=== PATIENT | male | born 1980 | race African-American/Black ===

== ENCOUNTER 2019-08-24 19:14 | Emergency (ER) | payer SELFPAY ==
[2019-08-24] MEDS ORDERED: VANCOMYCIN HCL INJ 1000 MG VIAL IV ONE (20:22)
[2019-08-24] MEDS ORDERED: NORMAL SALINE 1000 ML 1,000 ML IV ONE (20:22)
[2019-08-24] MEDS ORDERED: MORPHINE SULFATE 10 MG/ML INJ IV ONE (20:22)
[2019-08-24] MEDS ORDERED: PIPERACILLIN/TAZOBACTAM 3.375 GM VIAL IV ONE (20:22)
--- NOTE | 2019-08-24 20:27 | ER Document Report ---
ED General - General Chief Complaint: Wound Infection Stated Complaint: OPEN WOUND BILATERAL FEET Time Seen by Provider: 08/24/19 20:12 TRAVEL OUTSIDE OF THE [place] IN LAST 30 DAYS: No - HPI Notes: Patient is a 38-year-old male who presents to the emergency department for evaluation of bilateral foot pain. He is a very poor historian. I asked him how long he has had these ulcerations on his feet. He states he is unsure, may be 2 days. He denies any fevers or chills. No nausea or vomiting. He states he been having significant pain, which is why he came in here. He states he Narinder has an appointment with a surgeon on Saturday. He has diabetic neuropathy, but still states his pain is a 5 out of 5. - Related Data Allergies/Adverse Reactions: No Known Allergies Allergy (Unverified 08/05/16 21:37) Home Medications: metformin. insulin. gabapentin. oxycodone Past Medical History - General Information source: Patient - Social History Smoking Status: Current Every Day Smoker Frequency of alcohol use: daily Drug Abuse: Marijuana Family History: Reviewed & Not Pertinent Patient has suicidal ideation: No Patient has homicidal ideation: No Endocrine Medical History: Reports: Hx Diabetes Mellitus Type 2 - With neuropathy - Immunizations Hx Diphtheria, Pertussis, Tetanus Vaccination: Yes Review of Systems - Review of Systems Constitutional: No symptoms reported EENT: No symptoms reported Cardiovascular: No symptoms reported Respiratory: No symptoms reported Gastrointestinal: No symptoms reported Genitourinary: No symptoms reported Musculoskeletal: See HPI Skin: See HPI Neurological/Psychological: No symptoms reported Physical Exam - Notes Notes: This is an extremely cachectic 38-year-old male who appears his stated age. He smells strongly of marijuana and alcohol. Head is normocephalic and atraumatic, pupils are equal round, reactive to light. Mild scleral icterus noted. Oral mucosa is moist. Heart is regular rate and rhythm, lungs are clear station bilaterally. Abdomen is scaphoid, nontender, normoactive bowel sounds. Patient has extremely thickened and scaly skin to bilateral lower extremities. Examination of the right foot yields a 2 cm ulceration over the first metatarsophalangeal joint, on the plantar surface. Patient has a 6 cm x 3 cm ulceration over the fifth metatarsal on the left foot, from the MTP down towards the tarsal bones. There is purulent and foul-smelling drainage coming from the wound. There is thickened and dark skin, concerning for gangrene, surrounding the wound, tracking over the dorsum of the foot. Pulses are diminished but palpable. Sensation is diminished to light touch bilaterally. Course - Re-evaluation Re-evalutation: 08/24/19 20:26 Patient presents to the emergency department for evaluation. This patient has significant infection in both feet, left greater than right. I am concerned about the possibility of osteomyelitis, and this area definitely needs debridement. At this point I am concerned that he would require amputation. The patient states that under no circumstances will he stay in the hospital today. I talked to him at length about the possible complications he was facing, including but not limited to worsened infection, more proximal amputation, and . He thoroughly voiced understanding to this, states he still does not want to stay. He asks repeatedly for something for pain. He understands the gravity of his illness, and states he has not plan to follow-up with the surgeon on Saturday in place already. Patient will be medicated with Zosyn, vancomycin, morphine. He will be given IV fluids. X-rays obtained. La boratory investigations pending at this time, we will continue to monitor. 08/24/19 23:22 As expected, the patient does not fact have osteomyelitis of the fifth metatarsal. I explained this to the patient. I explained to him that he needs IV antibiotics, admission to the hospital, debridement. He is at risk of losing more tissue, a more proximal amputation, sepsis, . He voiced understanding to this and still refuses to stay in the hospital. He states he has an appointment on Saturday and will follow-up. He voiced understanding to all possible comp occasions and still wants to leave AGAINST MEDICAL ADVICE. He understands he can change his mind at any point return to the ED for further care and evaluation. We will send him home with a prescription for Augmentin. - Laboratory Result Diagrams: 08/24/19 20:40 08/24/19 20:40 Laboratory results interpreted by me: 08/24/19 08/24/19 20:40 20:40 RBC 3.92 L Hgb 13.1 L MCV 98 H ESR 43 H Sodium 134.7 L Chloride 97 L BUN 4 L Creatinine 0.50 L Glucose 483 H* Alkaline Phosphatase 175 H - Diagnostic Test Radiology reviewed: Image reviewed, Reports reviewed Radiology results interpreted by me: 08/24/19 23:21 Foot X-Ray 08/24/19 20:20 IMPRESSION: Osteomyelitis involving the head of the left fifth metatarsal. copyright 2011 [employer]- All Rights Reserved Discharge - Discharge Clinical Impression: Osteomyelitis, Diabetic foot ulcer Condition: Stable Disposition: AGAINST MEDICAL ADVICE Instructions: Antibiotic Ointment Protection ([facility]), Osteomyelitis ([facility]) Additional Instructions: You have elected to leave AGAINST MEDICAL ADVICE. The significant risk of worsening infection, need for larger amputation, sepsis, loss of lifestyle, , have all been explained in great detail. You have decided that you would still like to leave the hospital. Please understand that you can change your mind any time regarding admission, and return back to the ED for further evaluation. Otherwise, please take the antibiotic as prescribed. Follow-up with the surgeon as scheduled on Saturday.
[2019-08-24 20:55] LABS: ABSOLUTE BASOPHILS # (AUTO) 0.1 10^3/uL (0.0-0.2); ABSOLUTE EOSINOPHILS # (AUTO) 0.1 10^3/uL (0.0-0.6); ABSOLUTE LYMPHOCYTES (AUTO) 1.9 10^3/uL (0.5-4.7); ABSOLUTE MONOCYTES (AUTO) 0.6 10^3/uL (0.1-1.4); BASOPHILS % (AUTO) 1.2 % (0-2); EOSINOPHILS % (AUTO) 0.9 % (0-6); HEMATOCRIT 38.6 % (37.9-51.0); HEMOGLOBIN 13.1 g/dL (13.5-17.0); LYMPHOCYTES % (AUTO) 19.7 % (13-45); MEAN CORPUSCULAR HEMOGLOBIN 33.4 pg (27.0-33.4); MEAN CORPUSCULAR HGB CONC 33.9 g/dL (32.0-36.0); MEAN CORPUSCULAR VOLUME 98 fl (80-97); MONOCYTES % (AUTO) 6.6 % (3-13); PLATELET COUNT 357 10^3/uL (150-450); RED BLOOD COUNT 3.92 10^6/uL (4.35-5.55); RED CELL DISTRIBUTION WIDTH 13.8 % (11.5-14.0); SEGMENTED NEUTROPHILS % (AUTO) 71.6 % (42-78); TOTAL CELLS COUNTED % (AUTO) 100 %; WHITE BLOOD COUNT 9.7 10^3/uL (4.0-10.5)
[2019-08-24 21:21] LABS: ALBUMIN 3.5 g/dL (3.5-5.0); ALKALINE PHOSPHATASE 175 U/L (38-126); ANION GAP 9 (5-19); ASPARTATE AMINO TRANSFERASE 31 U/L (17-59); BILIRUBIN,DIRECT 0.2 mg/dL (0.0-0.4); BILIRUBIN,TOTAL 0.4 mg/dL (0.2-1.3); BLOOD UREA NITROGEN 4 mg/dL (7-20); CALCIUM 9.3 mg/dL (8.4-10.2); CARBON DIOXIDE 29 mmol/L (22-30); CHLORIDE 97 mmol/L (98-107); TOTAL PROTEIN 7.5 g/dL (6.3-8.2)
[2019-08-24 21:22] LABS: C-REACTIVE PROTEIN < 5.0 mg/L (<10.0)
[2019-08-24 21:25] LABS: GLUCOSE 483 mg/dL (75-110)
[2019-08-24 21:31] LABS: ERYTHROCYTE SEDIMENTATION RATE 43 mm/hr (0-15)
--- NOTE | 2019-08-24 21:40 | RADIOLOGY REPORT (SQ) ---
EXAM DESCRIPTION: XR FOOT 3 OR MORE VIEWS BILATERAL COMPLETED DATE/TME: 08/24/2019 20:20 CLINICAL HISTORY: 38 years, Male, ulcerations, eval for osteo COMPARISON: None. NUMBER OF VIEWS: TECHNIQUE: LIMITATIONS: None. FINDINGS: There are soft tissue ulcerations overlying the distal fifth metatarsals bilaterally, left side more apparent than right. There is bone destruction involving the lateral aspect of the head of the left fifth metatarsal, compatible with osteomyelitis. There is no definite radiographic evidence of osteomyelitis involving the right fifth metatarsal. IMPRESSION: Osteomyelitis involving the head of the left fifth metatarsal. copyright 2010 [employer]- All Rights Reserved
[2019-08-24] MEDS ORDERED: INSULIN REG, HUMAN 100 UNIT/ML 3 ML VIAL (PYX) IV ONE (22:53)
== END 2019-08-25 00:44 | disposition left against medical advice (07) ==
LOC: ER 19:14
DX: E11.69 Type 2 diabetes mellitus with other specified complication (principal); M86.9 Osteomyelitis, unspecified; E11.621 Type 2 diabetes mellitus with foot ulcer; L97.529 Non-pressure chronic ulcer of other part of left foot with unspecified severity; L97.519 Non-pressure chronic ulcer of other part of right foot with unspecified severity; E11.40 Type 2 diabetes mellitus with diabetic neuropathy, unspecified; Z79.84 Long term (current) use of oral hypoglycemic drugs; Z79.4 Long term (current) use of insulin; Z79.899 Other long term (current) drug therapy; Z79.891 Long term (current) use of opiate analgesic; M79.671 Pain in right foot; M79.672 Pain in left foot; F17.200 Nicotine dependence, unspecified, uncomplicated; F12.10 Cannabis abuse, uncomplicated; R64 Cachexia; Z53.20 Procedure and treatment not carried out because of patient's decision for unspecified reasons
CPT/HCPCS: 36415; 87040; 85025; 85652; 86140; 80053; 73630; J2270; J7030; J3370; J2543

== ENCOUNTER 2019-10-29 04:03 | Inpatient (IN) | payer MEDICAID ==
[2019-10-29 04:36] LABS: ABSOLUTE BASOPHILS # (AUTO) 0.1 10^3/uL (0.0-0.2); ABSOLUTE EOSINOPHILS # (AUTO) 0.1 10^3/uL (0.0-0.6); ABSOLUTE LYMPHOCYTES (AUTO) 1.8 10^3/uL (0.5-4.7); ABSOLUTE MONOCYTES (AUTO) 0.9 10^3/uL (0.1-1.4); ABSOLUTE NEUT (AUTO) 14.6 10^3/uL (1.7-8.2); BASOPHILS % (AUTO) 0.6 % (0-2); EOSINOPHILS % (AUTO) 0.7 % (0-6); HEMATOCRIT 31.8 % (37.9-51.0); HEMOGLOBIN 10.4 g/dL (13.5-17.0); LYMPHOCYTES % (AUTO) 10.4 % (13-45); MEAN CORPUSCULAR HEMOGLOBIN 31.9 pg (27.0-33.4); MEAN CORPUSCULAR HGB CONC 32.7 g/dL (32.0-36.0); MEAN CORPUSCULAR VOLUME 98 fl (80-97); PLATELET COUNT 716 10^3/uL (150-450); RED BLOOD COUNT 3.26 10^6/uL (4.35-5.55); RED CELL DISTRIBUTION WIDTH 14.4 % (11.5-14.0); SEGMENTED NEUTROPHILS % (AUTO) 83.3 % (42-78); TOTAL CELLS COUNTED % (AUTO) 100 %; WHITE BLOOD COUNT 17.5 10^3/uL (4.0-10.5)
[2019-10-29 04:41] LABS: VENOUS BLOOD BASE EXCESS -1.2 mmol/L; VENOUS BLOOD HCO3 25.6 mmol/L (20-32); VENOUS BLOOD PCO2 51.2 mmHg (35-63); VENOUS BLOOD PH 7.32 (7.30-7.42)
[2019-10-29] MEDS ORDERED: RINGERS SOLUTION,LACTATED 1,000 ML IV ONE ×2 (04:48→05:12)
[2019-10-29] MEDS ORDERED: ONDANSETRON HCL INJ/PF 4 MG/2 ML SDV IV ONE (04:48)
[2019-10-29 04:50] LABS: ALBUMIN 3.5 g/dL (3.5-5.0); ALKALINE PHOSPHATASE 199 U/L (38-126); ANION GAP 11 (5-19); ASPARTATE AMINO TRANSFERASE 65 U/L (17-59); BILIRUBIN,DIRECT 0.3 mg/dL (0.0-0.4); BILIRUBIN,TOTAL 0.5 mg/dL (0.2-1.3); BLOOD UREA NITROGEN 23 mg/dL (7-20); CARBON DIOXIDE 24 mmol/L (22-30); CHLORIDE 97 mmol/L (98-107); POTASSIUM 4.6 mmol/L (3.6-5.0); TOTAL PROTEIN 8.3 g/dL (6.3-8.2)
--- NOTE | 2019-10-29 04:50 | ER Document Report ---
ED General - General Chief Complaint: Nausea/Vomiting/Diarrhea Stated Complaint: ABDOMINAL AND LEG PAIN Time Seen by Provider: 10/29/19 04:41 Notes: Patient is a 38-year-old male that comes emergency department for chief complaint of nausea, vomiting, abdominal pain, weakness, aching all over for the past 2 days. He also reports some loose stools. He denies fevers, chest pain, shortness of breath. 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 He denies any medical history other than type 2 diabetes, denies any recreational drugs, reports infrequent alcohol. He has not taken insulin today because he was unable to eat. He states his grandmother called EMS. He received 1 L normal saline in route for hypotension but is still hypotensive on arrival with borderline tachycardia. TRAVEL OUTSIDE OF THE [place] IN LAST 30 DAYS: No - Related Data Allergies/Adverse Reactions: No Known Allergies Allergy (Unverified 08/05/16 21:37) Home Medications: Med bag at bedside Past Medical History - General Information source: Patient - Social History Smoking Status: Never Smoker Frequency of alcohol use: Social Drug Abuse: None Lives with: Family Family History: Reviewed & Not Pertinent Patient has suicidal ideation: No Patient has homicidal ideation: No Endocrine Medical History: Reports: Hx Diabetes Mellitus Type 2 - Insulin- dependent, with neuropathy Past Surgical History: Reports: Hx Orthopedic Surgery - Right BKA - Immunizations Hx Diphtheria, Pertussis, Tetanus Vaccination: Yes Review of Systems - Review of Systems Constitutional: See HPI EENT: No symptoms reported Cardiovascular: No symptoms reported Respiratory: No symptoms reported Gastrointestinal: See HPI Genitourinary: No symptoms reported Male Genitourinary: No symptoms reported Musculoskeletal: No symptoms reported Skin: No symptoms reported Hematologic/Lymphatic: No symptoms reported Neurological/Psychological: No symptoms reported Physical Exam - Vital signs Vitals: Resp Pulse Ox 14 96 10/29/19 04:06 10/29/19 04:06 - Notes Notes: GENERAL: Awake, responsive but emaciated, extremely ill-appearing HEAD: Normocephalic, atraumatic. EYES: Pupils equal, round, and reactive to light. ENT: Oral mucosa very dry, tongue midline. Oropharynx unremarkable. Airway patent. NECK: Full range of motion. Supple. Trachea midline. LUNGS: Clear to auscultation bilaterally, no wheezes, rales, or rhonchi. No respiratory distress. HEART: Tachycardia, normal rhythm, no murmur ABDOMEN: No surgical scars. Generalized tenderness in upper and lower abdomen without obvious distention or guarding. Bowel sounds quiet. EXTREMITIES: Right BKA with Steri-Strips but no melanie over the stump, no drainage, tenderness, erythema, or noted tenderness. Old right dorsal hand wound which has healed open without current bleeding or drainage. Unremarkable otherwise. BACK: no cervical, thoracic, lumbar midline tenderness. No saddle anesthesia, normal distal neurovascular exam. Moves all extremities in full range of motion. NEUROLOGICAL: Alert and oriented x3. Normal speech. Cranial nerves II through XII grossly intact. PSYCH: Normal affect, normal mood. SKIN: Extremely dry skin Course - Re-evaluation Re-evalutation: Patient is very ill-appearing, hypotensive, tachycardic, extremely emaciated. However the right BKA does not appear infected, is not draining, erythematous, or tender. Patient discovered to be on Flagyl and Bactrim with review of his medications at bedside, he is also on pain medication with oxycodone. Patient denies any abdominal surgeries, he has generalized abdominal tenderness, he is not hypoxic, he is not febrile. Patient denies vomiting blood. Patient unsure of his stool appearance. Patient had a bowel movement, this was noted to be very dark, possibly bloody, this was heme positive. Patient's hemoglobin is also dropped down into the tens from previous 12's although patient did have recent surgery. Starting on Protonix, Protonix drip. Patient has not vomited since he has been here. He is more comfortable on reevaluation, his blood pressure is normal now, his tachycardia is resolved after IV fluids and medications. On reevaluation patient complaining of more abdominal pain. He does have leukocytosis, he still has generalized abdominal tenderness, chemistry nonspecific. Patient has been given insulin and IV fluids with hyperglycemia but he is not acidotic. Because of his overall ill appearance, abdominal pain, leukocytosis, dark stool CT of the abdomen pelvis was performed, patient does not feel he can tolerate oral contrast, this was performed without unfortunately. CT report indicating dilated stomach and small bowel suggestive of partial obstruction, groundglass opacity in the right lower lung. Patient has no cough, shortness of breath, hypoxia. No fever. 10/29/19 I have discussed patient with Dr. Kilgore. Discussed with surgery Dr. Goetz, he states he will consult on the patient, recommends hospitalist admission, recommends oral contrast CAT scan. I discussed with patient again, he does feel better and he appears much improved, he states he does feel like he would be able to drink oral contrast at this point. 10/29/19 Discussed with Alaina Vincent NP, patient accepted to the medical floor full admission. Patient states understanding and agreement with plan - Vital Signs Vital signs: Temp Pulse Resp BP Pulse Ox 97.7 F 15 116/84 98 10/29/19 04:21 10/29/19 06:00 10/29/19 07:00 10/29/19 06:01 - Laboratory Result Diagrams: 10/29/19 04:15 10/29/19 04:15 Laboratory results interpreted by me: 10/29/19 10/29/19 10/29/19 04:11 04:15 04:15 WBC 17.5 H RBC 3.26 L Hgb 10.4 L Hct 31.8 L MCV 98 H RDW 14.4 H Plt Count 716 H Lymph % (Auto) 10.4 L Absolute Neuts (auto) 14.6 H Seg Neutrophils % 83.3 H Sodium 131.7 L Chloride 97 L BUN 23 H Glucose 465 H* POC Glucose 451 H* AST 65 H Alkaline Phosphatase 199 H Total Protein 8.3 H 10/29/19 07:08 WBC RBC Hgb Hct MCV RDW Plt Count Lymph % (Auto) Absolute Neuts (auto) Seg Neutrophils % Sodium Chloride BUN Glucose POC Glucose 417 H* AST Alkaline Phosphatase Total Protein Discharge - Discharge Clinical Impression: Hyperglycemia Vomiting Qualifiers: Vomiting type: unspecified Vomiting Intractability: non-intractable Nausea presence: with nausea Qualified Code(s): R11.2 - Nausea with vomiting, unspecified GI bleed Qualifiers: GI bleed type/associated pathology: unspecified gastrointestinal hemorrhage type Qualified Code(s): K92.2 - Gastrointestinal hemorrhage, unspecified Condition: Stable Disposition: ADMITTED INPATIENT Admitting Provider: Rob (Hospitalist) Unit Admitted: Medical Floor
[2019-10-29 05:02] LABS: GLUCOSE 465 mg/dL (75-110)
[2019-10-29] MEDS ORDERED: INSULIN REG, HUMAN 100 UNIT/ML 3 ML VIAL (PYX) SUBCUT ONE (05:11)
[2019-10-29] MEDS ORDERED: FENTANYL CITRATE INJ/PF 100 MCG/2 ML AMPUL IV ONE ×2 (05:12→07:11)
[2019-10-29] MEDS ORDERED: PANTOPRAZOLE SODIUM 40 MG VIAL IV ONE (05:24)
[2019-10-29 05:40] LABS: INTERNATIONAL RATION (INR) 1.05; PROTHROMBIN TIME 13.7 SEC (11.4-15.4)
[2019-10-29 05:41] LABS: PARTIAL THROMBOPLASTIN TIME 32.3 SEC (23.5-35.8)
[2019-10-29] MEDS ORDERED: PANTOPRAZOLE SODIUM 40 MG VIAL IV PRN (06:01)
--- NOTE | 2019-10-29 06:22 | RADIOLOGY REPORT (SQ) ---
EXAM DESCRIPTION: XR CHEST 1 VIEW COMPLETED DATE/TME: 10/29/2019 05:11 CLINICAL HISTORY: 38 years, Male, weakness, hypotension COMPARISON: None. NUMBER OF VIEWS: 1 TECHNIQUE: Portable chest LIMITATIONS: None. FINDINGS: The heart size is normal. Lungs are clear. No pneumothorax IMPRESSION: Negative chest copyright 2011 [employer]- All Rights Reserved
--- NOTE | 2019-10-29 07:26 | RADIOLOGY REPORT (SQ) ---
EXAM: CT abdomen and pelvis with IV contrast CLINICAL DATA: 38-year-old male with abdominal pain, vomiting and leukocytosis TECHNICAL DATA: Axial CT imaging of the abdomen and pelvis was performed following the administration of intravenous contrast.. Sagittal and coronal reconstructed images were then performed. The CT study is performed according to ALARA (as low as reasonably achievable) or ALARA/IMAGE GENTLY, with automatic adjustment of mA and/or kV according to patient size. Performed on: 10/29/2019 at 6:18 AM. Comparison: None FINDINGS: Lung bases: There are faint groundglass opacities in the right lower lobe which may be related to a localized inflammatory process. The lung bases are otherwise clear. There are no pleural effusions. Liver:The liver is normal in size and configuration. No focal hepatic abnormalities are identified. Liver attenuation is within normal limits. Spleen:The spleen is normal is size, configuration and attenuation. Gallbladder and bile duct: The gallbladder is difficult to delineate from adjacent bowel loops. There is no biliary ductal dilatation. Pancreas: The pancreas is grossly normal in size and configuration. Adrenal Glands:The adrenal glands are normal in size and configuration. Kidneys:The kidneys are normal in size and configuration. There is no evidence of hydronephrosis. There is no evidence of nephrolithiasis. No definite solid or cystic renal mass lesions are identified. Stomach: The stomach is moderately distended with fluid. There is no definite hiatal hernia. Bowel:The bowel gas pattern is non specific and non obstructive. There is a paucity of intra-abdominal fat resulting in slight degradation of image quality. The duodenum is moderately distended with fluid. Appendix: The appendix is normal. Free air:There is no evidence of free air. Free fluid: No definite free fluid is appreciated on this examination. Vasculature: The aorta is normal in caliber and contour. The inferior vena cava is grossly unremarkable. Lymphadenopathy: No pathologic lymphadenopathy is identified. Bladder: The bladder is well distended and smooth in contour. Reproductive: The prostate gland is grossly within normal limits. Bones: No acute osseous abnormalities are identified. Soft tissues: No focal soft tissue abnormalities are identified. There is poor differentiation of the subcutaneous fat planes which may be due to underlying edema. IMPRESSION: 1. Faint groundglass opacities in the right lower lobe which may be related to a localized inflammatory process. 2. The stomach and duodenum are moderately distended with fluid. A proximal bowel obstruction is not excluded. 3. Poor differentiation of the subcutaneous fat planes which may be due to underlying edema. 4. Paucity of intra-abdominal fat resulting in slight degradation of image quality. 5. The gallbladder is difficult to delineate from adjacent bowel loops.
[2019-10-29 08:16] LABS: APPEARANCE,URINE SLIGHTLY-CLOUDY; BILIRUBIN,URINE NEGATIVE (NEGATIVE); COLOR,URINE YELLOW; GLUCOSE, URINE >=500 mg/dL (NEGATIVE); KETONES,URINE NEGATIVE (NEGATIVE); LEUKOCYTE ESTERASE,URINE TRACE (NEGATIVE); NITRITE,URINE NEGATIVE (NEGATIVE); PROTEIN,URINE 30 mg/dL (NEGATIVE); URINE SPECIFIC GRAVITY 1.054; UROBILINOGEN,URINE NEGATIVE mg/dL (<2.0)
[2019-10-29] MEDS ORDERED: ONDANSETRON HCL INJ/PF 4 MG/2 ML SDV IV PRN (08:40)
[2019-10-29] MEDS ORDERED: ACETAMINOPHEN 325 MG TABLET PO PRN (08:40)
[2019-10-29] MEDS ORDERED: MAG HYDROX/AL HYDROX/SIMETH SUSP 30 ML UDCUP PO PRN (08:40)
[2019-10-29] MEDS ORDERED: NORMAL SALINE 1000 ML 1,000 ML IV PRN (08:40)
[2019-10-29] MEDS ORDERED: IPRATROPIUM/ALBUTEROL 0.5-2.5 MG/3 ML AMPUL NEB PRN (08:40)
[2019-10-29] MEDS ORDERED: DEXTROSE 50%-WATER 25 GM/50 ML DISP.SYRIN IV PRN ×2 (08:47)
[2019-10-29] MEDS ORDERED: DEXTROSE 40% GEL 15 GM TUBE PO PRN ×2 (08:47)
[2019-10-29] MEDS ORDERED: GLUCAGON,HUMAN RECOMB 1 MG INJ SUBCUT PRN (08:47)
[2019-10-29] MEDS ORDERED: NORMAL SALINE 100 ML with PANTOPRAZOLE SODIUM 80 MG IV PRN ×2 (08:49)
--- NOTE | 2019-10-29 09:27 | EKG REPORT ---
SEVERITY:- OTHERWISE NORMAL ECG - SINUS RHYTHM BORDERLINE RIGHT AXIS DEVIATION ST ELEV, PROBABLE NORMAL EARLY REPOL PATTERN : Confirmed by: Cash Hughes 29-Oct-2019 09:26:57
[2019-10-29] MEDS: MINERAL OIL/PETROLATUM,WHITE CREAM 114 GM TP SCH ×4 (09:28→21:38)
[2019-10-29] MEDS: DOCUSATE SODIUM 100 MG CAPSULE PO SCH (09:28)
[2019-10-29] MEDS: INSULIN GLARGINE,HUM.REC.ANLOG 1,000 UNIT/10 ML VIAL SUBCUT SCH ×2 (09:31→21:35)
[2019-10-29 10:17] LABS: C DIFFICILE GDH NEGATIVE (NEGATIVE)
--- NOTE | 2019-10-29 10:58 | RADIOLOGY REPORT (SQ) ---
EXAM DESCRIPTION: CT ABD/PELVIS ORAL ONLY COMPLETED DATE/TIME: 10/29/2019 10:38 am REASON FOR STUDY: eval abnormal bowel on inital CT COMPARISON: Earlier the same day. TECHNIQUE: CT scan of the abdomen and pelvis performed with oral contrast and no intravenous contras t. Images reviewed with lung, soft tissue, and bone windows. Reconstructed coronal and sagittal MPR i mages reviewed. All images stored on PACS. All CT scanners at this facility use dose modulation, iterative reconstruction, and/or weight based d osing when appropriate to reduce radiation dose to as low as reasonably achievable (ALARA). [facility]: Dose Right [facility]: CareDose [facility]: Dose Right [facility]: Teradose 4D [facility]: [place] Illumination RADIATION DOSE: CT Rad equipment meets quality standard of care and radiation dose reduction techniq ues were employed. CTDIvol: 5.2 mGy. DLP: 278 mGy-cm. mGy. LIMITATIONS: None. FINDINGS: There is oral contrast in the stomach, small and large bowel. Mildly dilated loops of sma ll bowel in the left upper quadrant. No clear transition however the more distal small bowel is norm al in caliber. No other additional relevant information compared to the prior. IMPRESSION: Ileus or partial small bowel obstruction left upper quadrant. No high-grade obstruction . TECHNICAL DOCUMENTATION: JOB ID: [id number] Quality ID # [id number]: Final reports with documentation of one or more dose reduction techniques (e.g., Au tomated exposure control, adjustment of the mA and/or kV according to patient size, use of iterative reconstruction technique) 2010 [employer]- All Rights Reserved Reading location - IP/workstation name: [email or web address]
[2019-10-29] MEDS: TRAMADOL HCL 50 MG TABLET PO PRN ×2 (12:13→21:37)
[2019-10-29] MEDS: INSULIN LISPRO 100 UNIT/ML 3 ML VIAL SUBCUT SCH ×3 (12:14→21:35)
--- NOTE | 2019-10-29 13:29 | PDOC H&P ---
History of Present Illness Admission Date/PCP: 10/29/19 07:57 Patient complains of: Abdominal pain History of Present Illness: MATTEO JOSE is a 38 year old male with a past medical history of uncontrolled diabetes mellitus, osteomyelitis with recent right BKA, neuropathy who presented to the emergency department today with a complaint of generalized abdominal discomfort with nausea x2 days. He reports one episode of emesis yesterday. Evaluation in the emergency department revealed leukocytosis (D 17.5), anemia with a hemoglobin of coags, blood gas, and chemistry revealing mild hyponatremia slightly elevated AST and alk phosphatase, and hyperglycemia. CT of the abdomen with contrast demonstrated ileus versus partial small bowel obstruction to the left upper quadrant. Surgery has been consulted by the emergency department provider. Refer to the hospitalist service for admission and management of the above- stated complaints and findings. Past Medical History Cardiac Medical History: Reports: None Pulmonary Medical History: Reports: None EENT Medical History: Reports: None Endocrine Medical History: Reports: Diabetes Mellitus Type 2 - Insulin- dependent, with neuropathy Denies: Hypothyroidism, Obesity Renal/ Medical History: Reports: None Malignancy Medical History: Reports: None GI Medical History: Reports: None Musculoskeltal Medical History: Reports: None Psychiatric Medical History: Reports: Tobacco Dependency Hematology: Reports: None Infectious Medical History: Reports: None Past Surgical History Past Surgical History: Reports: Orthopedic Surgery - Right BKA Social History Information Source: Patient Lives with: Family Smoking Status: Never Smoker Electronic Cigarette use?: No Frequency of Alcohol Use: Occasional Hx Recreational Drug Use: No Hx Prescription Drug Abuse: No - Advance Directive Resuscitation Status: Full Code Family History Family History: Reviewed & Not Pertinent Parental Family History Reviewed: Yes Children Family History Reviewed: Yes Sibling(s) Family History Reviewed.: Yes Medication/Allergy Home Medications: B Infantis/B Ani/B Gus/B Bifid [Probiotic 4X Caplet] 1 each PO DAILY 10/29/19 Gabapentin [Neurontin 300 mg Capsule] 600 mg PO Q8 10/29/19 Insulin Aspart [Novolog Flexpen] 5 unit SQ AC 10/29/19 Insulin Detemir [Levemir Insulin 100 units/mL Insulin Pen] 40 units SQ QHS 10/29/19 Metformin HCl [Metformin HCl ER] 500 mg PO BID 10/29/19 Metronidazole [Flagyl 500 mg Tablet] 500 mg PO Q12 10/29/19 Mupirocin [Bactroban 2% Ointment 22 gm] 1 applic TP DAILY 10/29/19 Oxycodone HCl [Oxy-Ir 5 mg Tablet] 10 mg PO Q4HP PRN 10/29/19 Sulfamethoxazole/Trimethoprim [Septra-Ds 800-160 mg Tablet] 1 tab PO Q12 10/29/19 Allergies/Adverse Reactions: No Known Allergies Allergy (Unverified 08/05/16 21:37) Review of Systems Constitutional: PRESENT: headache(s). ABSENT: chills, fever(s), weight gain, weight loss Eyes: ABSENT: visual disturbances Ears: ABSENT: hearing changes Cardiovascular: ABSENT: chest pain, dyspnea on exertion, edema, orthropnea, palpitations Respiratory: ABSENT: cough, hemoptysis Gastrointestinal: PRESENT: abdominal pain, nausea, vomiting. ABSENT: c onstipation, diarrhea, hematemesis, hematochezia Genitourinary: ABSENT: dysuria, hematuria Musculoskeletal: ABSENT: joint swelling Integumentary: ABSENT: rash, wounds Neurological: ABSENT: abnormal gait, abnormal speech, confusion, dizziness, focal weakness, syncope Psychiatric: ABSENT: anxiety, depression, homidical ideation, suicidal ideation Endocrine: ABSENT: cold intolerance, heat intolerance, polydipsia, polyuria Hematologic/Lymphatic: ABSENT: easy bleeding, easy bruising Physical Exam Vital Signs: Temp Pulse Resp BP Pulse Ox 97.8 F 13 96/59 L 100 10/29/19 08:00 10/29/19 12:06 10/29/19 12:06 10/29/19 12:06 Intake & Output 10/28/19 10/29/19 10/30/19 06:59 06:59 06:59 Intake Total 1999 Balance 1999 Weight 53 kg General appearance: PRESENT: no acute distress, disheveled, thin, well-developed Head exam: PRESENT: atraumatic, normocephalic Eye exam: PRESENT: conjunctiva pink, EOMI, PERRLA. ABSENT: scleral icterus Ear exam: PRESENT: normal external ear exam Mouth exam: PRESENT: dry mucosa, tongue midline Teeth exam: PRESENT: dental caries, poor dentation Respiratory exam: PRESENT: clear to auscultation hortensia, symmetrical, unlabored. ABSENT: rales, rhonchi, wheezes Cardiovascular exam: PRESENT: RRR, +S1, +S2. ABSENT: diastolic murmur, rubs, systolic murmur Pulses: PRESENT: normal dorsalis pedis pul Vascular exam: PRESENT: normal capillary refill GI/Abdominal exam: PRESENT: hypoactive bowel sounds, normal bowel sounds, soft, tenderness. ABSENT: distended, guarding, mass, organolmegaly, rebound Rectal exam: PRESENT: deferred Extremities exam: PRESENT: full ROM, other - recent right BKA; surgical incision well approximated, no erythema, edema, or drainage. ABSENT: calf tenderness, clubbing, pedal edema Neurological exam: PRESENT: alert, awake, oriented to person, oriented to place, oriented to time, oriented to situation, CN II-XII grossly intact. ABSENT: motor sensory deficit Psychiatric exam: PRESENT: appropriate affect, normal mood. ABSENT: homicidal ideation, suicidal ideation Skin exam: PRESENT: dry, warm, other - dry, flakey.. ABSENT: cyanosis, intact, rash Results Laboratory Results: 10/29/19 04:15 10/29/19 04:15 10/29/19 10/29/19 10/29/19 04:15 04:15 04:15 WBC 17.5 H RBC 3.26 L Hgb 10.4 L Hct 31.8 L MCV 98 H MCH 31.9 MCHC 32.7 RDW 14.4 H Plt Count 716 H Seg Neutrophils % 83.3 H VBG pH 7.32 VBG pCO2 51.2 VBG HCO3 25.6 VBG Base Excess -1.2 Sodium 131.7 L Potassium 4.6 Chloride 97 L Carbon Dioxide 24 Anion Gap 11 BUN 23 H Creatinine 0.83 Est GFR ( Amer) > 60 Glucose 465 H* Lactic Acid Calcium 10.0 Total Bilirubin 0.5 AST 65 H Alkaline Phosphatase 199 H Total Protein 8.3 H Albumin 3.5 Lipase Urine Color Urine Appearance Urine pH Ur Specific [place] Urine Protein Urine Glucose (UA) Urine Ketones Urine Blood Urine Nitrite Ur Leukocyte Esterase Urine WBC (Auto) Urine RBC (Auto) Blood Type Antibody Screen 10/29/19 10/29/19 10/29/19 04:15 04:15 07:05 WBC RBC Hgb Hct MCV MCH MCHC RDW Plt Count Seg Neutrophils % VBG pH VBG pCO2 VBG HCO3 VBG Base Excess Sodium Potassium Chloride Carbon Dioxide Anion Gap BUN Creatinine Est GFR ( Amer) Glucose Lactic Acid 1.6 Calcium Total Bilirubin AST Alkaline Phosphatase Total Protein Albumin Lipase 54.7 Urine Color Urine Appearance Urine pH Ur Specific [place] Urine Protein Urine Glucose (UA) Urine Ketones Urine Blood Urine Nitrite Ur Leukocyte Esterase Urine WBC (Auto) Urine RBC (Auto) Blood Type Cancelled Antibody Screen Cancelled 10/29/19 10/29/19 10/29/19 07:54 07:54 08:00 WBC RBC Hgb Hct MCV MCH MCHC RDW Plt Count Seg Neutrophils % VBG pH VBG pCO2 VBG HCO3 VBG Base Excess Sodium Potassium Chloride Carbon Dioxide Anion Gap BUN Creatinine Est GFR ( Amer) Glucose Lactic Acid 0.8 Calcium Total Bilirubin AST Alkaline Phosphatase Total Protein Albumin Lipase Urine Color YELLOW Urine Appearance SLIGHTLY-CLOUDY Urine pH 6.0 Ur Specific [place] 1.054 Urine Protein 30 H Urine Glucose (UA) >=500 H Urine Ketones NEGATIVE Urine Blood NEGATIVE Urine Nitrite NEGATIVE Ur Leukocyte Esterase TRACE H Urine WBC (Auto) 10 Urine RBC (Auto) 59 Blood Type O POSITIVE Antibody Screen NEGATIVE 10/29/19 10:53 WBC RBC Hgb Hct MCV MCH MCHC RDW Plt Count Seg Neutrophils % VBG pH VBG pCO2 VBG HCO3 VBG Base Excess Sodium Potassium Chloride Carbon Dioxide Anion Gap BUN Creatinine Est GFR ( Amer) Glucose Lactic Acid 0.7 Calcium Total Bilirubin AST Alkaline Phosphatase Total Protein Albumin Lipase Urine Color Urine Appearance Urine pH Ur Specific [place] Urine Protein Urine Glucose (UA) Urine Ketones Urine Blood Urine Nitrite Ur Leukocyte Esterase Urine WBC (Auto) Urine RBC (Auto) Blood Type Antibody Screen 10/29/19 04:15 Creatine Kinase 68 Impressions: Chest X-Ray 10/29/19 05:11 IMPRESSION: Negative chest copyright 2011 [employer]- All Rights Reserved Abdomen/Pelvis CT 10/29/19 07:45 IMPRESSION: Ileus or partial small bowel obstruction left upper quadrant. No high-grade obstruction. Assessment and Plan - Diagnosis (1) Ileus Is this a current diagnosis for this admission?: Yes Plan: CT abdomen pelvis revealed a left upper quadrant ileus versus partial small bowel obstruction. He is admitted to the medical floor. He is placed in n.p.o. status. Continue maintenance IV fluids. Surgery is consulted; appreciate their evaluation recommendations. Antiemetics as needed. (2) Dehydration Is this a current diagnosis for this admission?: Yes Plan: Evidenced by specific gravity of 1.054, hyponatremia, BUN 23, dry mucous membranes, and dry flaky tenting skin. Patient has received a 2 L normal saline bolus. Continue generous IV fluids while in n.p.o. status. (3) DM2 (diabetes mellitus, type 2) Qualifiers: Diabetes mellitus supervisor intermediates insulin use: with supervisor intermediates use Diabetes mellitus complication status: with hyperglycemia Qualified Code(s): E11.65 - Type 2 diabetes mellitus with hyperglycemia; Z79.4 - half-way (current) use of insulin Is this a current diagnosis for this admission?: Yes Plan: Patient was admitted with blood glucose of 465 The patient is provided 2 L normal saline bolus followed by generous maintenance fluids He is placed on Accu-Cheks every 6 hours with Humalog for sliding scale coverage. Start one half dose Lantus twice daily while in n.p.o. status (4 units every 12) Hypoglycemia protocol. Registered dietitian and clinical trial educator consulted. (4) Abdominal pain Qualifiers: Abdominal location: generalized Qualified Code(s): R10.84 - Generalized abdominal pain Is this a current diagnosis for this admission?: Yes Plan: Secondary to #1. Evaluation and management as above. (5) Leukocytosis Is this a current diagnosis for this admission?: Yes Plan: WBCs 17.5. Unclear etiology; patient is afebrile, does report abdominal pain. CT reveals ileus versus small partial partial small bowel obstruction. Did undergo right BKA approximately 3 weeks ago and was discharged on p.o. Bactrim and Flagyl; quick pill count such as the patient has not been taking medications as prescribed. BKA surgical incision is clean, dry, well approximated, without erythema, edema, or drainage; no signs to suggest acute infection. Blood and stool cultures have been obtained. We will hold on antibiotics at this time. We will request discharge summary and wound/blood cultures regarding admission to outside hospital for BKA. (6) S/P BKA (below knee amputation) unilateral Is this a current diagnosis for this admission?: Yes Plan: Physical therapy consulted. Discharge planning is consulted. - Time Time Spent with patient: 35 or more minutes Medications reviewed and adjusted accordingly: Yes Anticipated discharge: Home - Inpatient Certification Based on my medical assessment, after consideration of the patient's comorbidities, presenting symptoms, or acuity I expect that the services needed warrant INPATIENT care.: Yes I certify that my determination is in accordance with my understanding of Medicare's requirements for reasonable and necessary INPATIENT services [42 CFR 412.3e].: Yes Medical Necessity: Need Close Monitoring Due to Risk of Patient Decompensation, Need For IV Fluids, Risk of Diagnosis Which Will Require Inpatient Eval/Care/Monitoring
[2019-10-29 15:01] LABS: URINE AMPHETAMINES SCREEN NEGATIVE; URINE BARBITURATES SCREEN NEGATIVE; URINE BENZODIAZEPINES SCREEN NEGATIVE; URINE COCAINE SCREEN NEGATIVE; URINE METHADONE SCREEN NEGATIVE; URINE PHENCYCLIDINE SCREEN NEGATIVE
[2019-10-29 15:04] LABS: URINE MARIJUANA (THC) SCREEN UNCONFIRMED POSITIVE
--- NOTE | 2019-10-29 15:55 | PDOC CONSULTATION ---
Consultation Consult Date: 10/29/19 Provider Consulted: MILY LIN Consult reason:: Abdominal pains with nausea and vomiting History of Present Illness Admission Date/PCP: 10/29/19 13:26 History of Present Illness: MATTEO JOSE is a 38 year old male type II diabetic on insulin, post left BKA for osteo-myelitis 3 weeks ago, started complaining of abdominal pains with nausea and vomiting yesterday. CT scan of the abdomen done today showed ileus versus partial small bowel obstruction. Patient just had a bowel movement in the ED just prior to being seen by myself with relief. He is hungry and wants to have some food and then wants to go home. He now is asking for pain medications for his left BKA 3 weeks ago and pains along the right leg due to his diabetes when his pain medications ran out 2 days ago Past Medical History Cardiac Medical History: Reports: None Pulmonary Medical History: Reports: None EENT Medical History: Reports: None Endocrine Medical History: Reports: Diabetes Mellitus Type 2 - Insulin- dependent, with neuropathy Denies: Hypothyroidism, Obesity Renal/ Medical History: Reports: None Malignancy Medical History: Reports: None GI Medical History: Reports: None Musculoskeltal Medical History: Reports: None Psychiatric Medical History: Reports: Tobacco Dependency Hematology: Reports: None Infectious Medical History: Reports: None Past Surgical History Past Surgical History: Reports: Orthopedic Surgery - Right BKA Social History Lives with: Family Smoking Status: Never Smoker Electronic Cigarette use?: No Frequency of Alcohol Use: Occasional Hx Recreational Drug Use: No Hx Prescription Drug Abuse: No - Advance Directive Resuscitation Status: Full Code Family History Family History: Reviewed & Not Pertinent Parental Family History Reviewed: Yes Children Family History Reviewed: No Sibling(s) Family History Reviewed.: No Medication/Allergy Home Medications: B Infantis/B Ani/B Gus/B Bifid [Probiotic 4X Caplet] 1 each PO DAILY 10/29/19 Gabapentin [Neurontin 300 mg Capsule] 600 mg PO Q8 10/29/19 Insulin Aspart [Novolog Flexpen] 5 unit SQ AC 10/29/19 Insulin Detemir [Levemir Insulin 100 units/mL Insulin Pen] 40 units SQ QHS 10/29/19 Metformin HCl [Metformin HCl ER] 500 mg PO BID 10/29/19 Metronidazole [Flagyl 500 mg Tablet] 500 mg PO Q12 10/29/19 Mupirocin [Bactroban 2% Ointment 22 gm] 1 applic TP DAILY 10/29/19 Oxycodone HCl [Oxy-Ir 5 mg Tablet] 10 mg PO Q4HP PRN 10/29/19 Sulfamethoxazole/Trimethoprim [Septra-Ds 800-160 mg Tablet] 1 tab PO Q12 10/29/19 Allergies/Adverse Reactions: No Known Allergies Allergy (Unverified 08/05/16 21:37) Review of Systems Constitutional: PRESENT: other - Denies fever no chills Gastrointestinal: PRESENT: as per HPI Neurological: PRESENT: other - Phantom limb on the left BKA and pains along the right leg that he attributes due to his diabetic neuropathy Physical Exam Vital Signs: Temp Pulse Resp BP Pulse Ox 97.8 F 10 L 90/58 L 98 10/29/19 08:00 10/29/19 13:32 10/29/19 14:00 10/29/19 14:01 Intake & Output 10/28/19 10/29/19 10/30/19 06:59 06:59 06:59 Intake Total 1999 Balance 1999 Weight 53 kg General appearance: PRESENT: mild distress Head exam: PRESENT: atraumatic Eye exam: PRESENT: conjunctiva pink Mouth exam: PRESENT: dry mucosa Neck exam: PRESENT: full ROM Respiratory exam: PRESENT: clear to auscultation hortensia Cardiovascular exam: PRESENT: RRR Pulses: PRESENT: normal radial pulses Vascular exam: PRESENT: normal capillary refill GI/Abdominal exam: PRESENT: soft - Nontender Rectal exam: PRESENT: deferred Neurological exam: PRESENT: alert, oriented to person, oriented to place, oriented to time, oriented to situation Psychiatric exam: PRESENT: appropriate affect Skin exam: PRESENT: normal color, warm Results Laboratory Results: 10/29/19 04:15 10/29/19 04:15 10/29/19 10/29/19 10/29/19 04:15 04:15 04:15 WBC 17.5 H RBC 3.26 L Hgb 10.4 L Hct 31.8 L MCV 98 H MCH 31.9 MCHC 32.7 RDW 14.4 H Plt Count 716 H Seg Neutrophils % 83.3 H VBG pH 7.32 VBG pCO2 51.2 VBG HCO3 25.6 VBG Base Excess -1.2 Sodium 131.7 L Potassium 4.6 Chloride 97 L Carbon Dioxide 24 Anion Gap 11 BUN 23 H Creatinine 0.83 Est GFR ( Amer) > 60 Glucose 465 H* Lactic Acid Calcium 10.0 Total Bilirubin 0.5 AST 65 H Alkaline Phosphatase 199 H Total Protein 8.3 H Albumin 3.5 Lipase Urine Color Urine Appearance Urine pH Ur Specific [place] Urine Protein Urine Glucose (UA) Urine Ketones Urine Blood Urine Nitrite Ur Leukocyte Esterase Urine WBC (Auto) Urine RBC (Auto) Blood Type Antibody Screen 10/29/19 10/29/19 10/29/19 04:15 04:15 07:05 WBC RBC Hgb Hct MCV MCH MCHC RDW Plt Count Seg Neutrophils % VBG pH VBG pCO2 VBG HCO3 VBG Base Excess Sodium Potassium Chloride Carbon Dioxide Anion Gap BUN Creatinine Est GFR ( Amer) Glucose Lactic Acid 1.6 Calcium Total Bilirubin AST Alkaline Phosphatase Total Protein Albumin Lipase 54.7 Urine Color Urine Appearance Urine pH Ur Specific [place] Urine Protein Urine Glucose (UA) Urine Ketones Urine Blood Urine Nitrite Ur Leukocyte Esterase Urine WBC (Auto) Urine RBC (Auto) Blood Type Cancelled Antibody Screen Cancelled 10/29/19 10/29/19 10/29/19 07:54 07:54 08:00 WBC RBC Hgb Hct MCV MCH MCHC RDW Plt Count Seg Neutrophils % VBG pH VBG pCO2 VBG HCO3 VBG Base Excess Sodium Potassium Chloride Carbon Dioxide Anion Gap BUN Creatinine Est GFR ( Amer) Glucose Lactic Acid 0.8 Calcium Total Bilirubin AST Alkaline Phosphatase Total Protein Albumin Lipase Urine Color YELLOW Urine Appearance SLIGHTLY-CLOUDY Urine pH 6.0 Ur Specific [place] 1.054 Urine Protein 30 H Urine Glucose (UA) >=500 H Urine Ketones NEGATIVE Urine Blood NEGATIVE Urine Nitrite NEGATIVE Ur Leukocyte Esterase TRACE H Urine WBC (Auto) 10 Urine RBC (Auto) 59 Blood Type O POSITIVE Antibody Screen NEGATIVE 10/29/19 10:53 WBC RBC Hgb Hct MCV MCH MCHC RDW Plt Count Seg Neutrophils % VBG pH VBG pCO2 VBG HCO3 VBG Base Excess Sodium Potassium Chloride Carbon Dioxide Anion Gap BUN Creatinine Est GFR ( Amer) Glucose Lactic Acid 0.7 Calcium Total Bilirubin AST Alkaline Phosphatase Total Protein Albumin Lipase Urine Color Urine Appearance Urine pH Ur Specific [place] Urine Protein Urine Glucose (UA) Urine Ketones Urine Blood Urine Nitrite Ur Leukocyte Esterase Urine WBC (Auto) Urine RBC (Auto) Blood Type Antibody Screen 10/29/19 04:15 Creatine Kinase 68 Impressions: Chest X-Ray 10/29/19 05:11 IMPRESSION: Negative chest copyright 2011 [employer]- All Rights Reserved Abdomen/Pelvis CT 10/29/19 07:45 IMPRESSION: Ileus or partial small bowel obstruction left upper quadrant. No high-grade obstruction. Assessment & Plan - Diagnosis (1) Abdominal pain Qualifiers: Abdominal location: generalized Qualified Code(s): R10.84 - Generalized abdominal pain Is this a current diagnosis for this admission?: Yes (2) DM2 (diabetes mellitus, type 2) Qualifiers: Diabetes mellitus long term care pharmacist insulin use: with long term care pharmacist use Diabetes mellitus complication status: with hyperglycemia Qualified Code(s): E11.65 - Type 2 diabetes mellitus with hyperglycemia; Z79.4 - [facility] (current) use of insulin Is this a current diagnosis for this admission?: Yes (3) Ileus Is this a current diagnosis for this admission?: Yes (4) S/P BKA (below knee amputation) unilateral Is this a current diagnosis for this admission?: Yes (5) Vomiting Qualifiers: Vomiting type: unspecified Vomiting Intractability: non-intractable Nausea presence: with nausea Qualified Code(s): R11.2 - Nausea with vomiting, unspecified Is this a current diagnosis for this admission?: Yes - Time Time Spent: 30 to 50 Minutes - Plan Summary Plan Summary: 38-year-old with type 2 diabetes on insulin, post left BKA, admitted for abdominal pains with ileus CAT scan. Patient just had a bowel movement with relief of the abdominal pains. His blood sugar was markedly elevated in the ED. Impression is abdominal pains due to ileus. Ileus appears to have been resolved after his bowel movement in the ED. Recommendations: Can start on clear liquids and advance to regular as tolerated. We will sign off but call us for any questions.
[2019-10-29] MEDS ORDERED: KETOROLAC TROMETHAMINE INJ/PF 30 MG/1 ML SDV IV PRN (16:08)
[2019-10-30] MEDS: MORPHINE SULFATE 10 MG/ML INJ IV PRN ×5 (00:37→19:42)
[2019-10-30 05:13] LABS: HEMATOCRIT 24.1 % (37.9-51.0); MEAN CORPUSCULAR HEMOGLOBIN 31.5 pg (27.0-33.4); MEAN CORPUSCULAR HGB CONC 33.4 g/dL (32.0-36.0); PLATELET COUNT 556 10^3/uL (150-450); RED BLOOD COUNT 2.56 10^6/uL (4.35-5.55); RED CELL DISTRIBUTION WIDTH 13.8 % (11.5-14.0)
[2019-10-30 05:21] LABS: MEAN CORPUSCULAR VOLUME 94 fl (80-97)
[2019-10-30 05:22] LABS: HEMOGLOBIN 8.1 g/dL (13.5-17.0)
[2019-10-30 05:27] LABS: ANION GAP 10 (5-19); BLOOD UREA NITROGEN 14 mg/dL (7-20); CARBON DIOXIDE 19 mmol/L (22-30); CHLORIDE 103 mmol/L (98-107)
[2019-10-30 05:32] LABS: GLUCOSE 45 mg/dL (75-110)
[2019-10-30] MEDS: INSULIN LISPRO 100 UNIT/ML 3 ML VIAL SUBCUT SCH ×4 (07:54→21:33)
[2019-10-30] MEDS: DOCUSATE SODIUM 100 MG CAPSULE PO SCH (09:31)
[2019-10-30] MEDS: INSULIN GLARGINE,HUM.REC.ANLOG 1,000 UNIT/10 ML VIAL SUBCUT SCH ×2 (09:31→21:34)
[2019-10-30] MEDS: MINERAL OIL/PETROLATUM,WHITE CREAM 114 GM TP SCH ×4 (09:31→21:33)
--- NOTE | 2019-10-30 14:43 | PDOC PROGRESS REPORT ---
Subjective Progress Note for:: 10/30/19 Subjective:: MATTEO JOSE is a 38 year old male with a past medical history of uncontrolled diabetes mellitus, osteomyelitis with recent right BKA, neuropathy who presented to the emergency department today with a complaint of generalized abdominal discomfort with nausea x2 days. He reports one episode of emesis yesterday. Evaluation in the emergency department revealed leukocytosis (D 17.5), anemia with a hemoglobin of coags, blood gas, and chemistry revealing mild hyponatremia slightly elevated AST and alk phosphatase, and hyperglycemia. CT of the abdomen with contrast demonstrated ileus versus partial small bowel obstruction to the left upper quadrant. Surgery has been consulted by the emergency department provider. Refer to the hospitalist service for admission and management of the above- stated complaints and findings. 10/30/2019. Patient has been having bowel movements and passing flatus however still complaining of sore abdomen, denies any fever, chills, nausea, vomiting, diarrhea, constipation or any urinary symptoms. Reason For Visit: ILEUS Physical Exam Vital Signs: Temp Pulse Resp BP Pulse Ox 98.0 F 87 17 113/78 99 10/30/19 11:00 10/30/19 11:00 10/30/19 11:00 10/30/19 11:00 10/30/19 11:00 Intake & Output 10/29/19 10/30/19 10/31/19 06:59 06:59 06:59 Intake Total 1999 2310 390 Output Total 350 Balance 1999 1960 390 Weight 56.8 kg General appearance: PRESENT: no acute distress, thin, well-nourished Head exam: PRESENT: atraumatic, normocephalic Respiratory exam: PRESENT: clear to auscultation hortensia. ABSENT: rales, rhonchi, wheezes Cardiovascular exam: PRESENT: RRR. ABSENT: diastolic murmur, rubs, systolic murmur GI/Abdominal exam: PRESENT: normal bowel sounds, soft, tenderness - Generalized tenderness. ABSENT: distended, guarding, mass, organolmegaly, rebound Musculoskeletal exam: PRESENT: other - Left BKA. Surgical wound looks clean. No sign of discharge. No tenderness. Neurological exam: PRESENT: alert, awake, oriented to person, oriented to place, oriented to time, oriented to situation, CN II-XII grossly intact. ABSENT: motor sensory deficit Results Laboratory Results: 10/30/19 04:01 10/30/19 04:01 10/30/19 10/30/19 04:01 04:01 WBC 15.0 H RBC 2.56 L Hgb 8.1 L D Hct 24.1 L MCV 94 D MCH 31.5 MCHC 33.4 RDW 13.8 Plt Count 556 H Sodium 132.0 L Potassium 4.0 Chloride 103 Carbon Dioxide 19 L Anion Gap 10 BUN 14 Creatinine 0.49 L Est GFR ( Amer) > 60 Glucose 45 L Calcium 9.0 10/29/19 04:15 Creatine Kinase 68 Impressions: Chest X-Ray 10/29/19 05:11 IMPRESSION: Negative chest copyright 2010 [employer]- All Rights Reserved Abdomen/Pelvis CT 10/29/19 07:45 IMPRESSION: Ileus or partial small bowel obstruction left upper quadrant. No high-grade obstruction. Assessment and Plan - Diagnosis (1) Ileus Is this a current diagnosis for this admission?: Yes Plan: Resolved. Patient is passing flatus and having bowel movements. CT abdomen pelvis on admission revealed a left upper quadrant ileus versus partial small bowel obstruction. Surgery consulted. Has signed off as ileus has resolved. Advance diet as tolerated. Monitor vitals. Supportive measures. (2) Abdominal pain Qualifiers: Abdominal location: generalized Qualified Code(s): R10.84 - Generalized abdominal pain Is this a current diagnosis for this admission?: Yes Plan: Secondary to #1. Evaluation and management as above. (3) DM2 (diabetes mellitus, type 2) Qualifiers: Diabetes mellitus buttermaker continuous churn insulin use: with buttermaker continuous churn use Diabetes mellitus complication status: with hyperglycemia Qualified Code(s): E11.65 - Type 2 diabetes mellitus with hyperglycemia; Z79.4 - intermediate (current) use of insulin Is this a current diagnosis for this admission?: Yes Plan: Noted to be hypoglycemic since hospitalization likely due to n.p.o. status. Presented with blood glucose level of 465 Received 2 L normal saline bolus followed by generous maintenance fluids Continue diabetic diet, Accu-Cheks every 6 hours with Humalog for sliding scale coverage. Start one half dose Lantus twice daily while in n.p.o. status (4 units every 12) Hypoglycemia protocol. Registered dietitian and music educator consulted. (4) S/P BKA (below knee amputation) unilateral Is this a current diagnosis for this admission?: Yes Plan: Physical therapy consulted. Discharge planning is consulted. (5) Leukocytosis Is this a current diagnosis for this admission?: Yes Plan: Improving. Presented with WBCs 17.5. Unclear etiology; patient is afebrile, does report abdominal pain. CT reveals ileus versus small partial partial small bowel obstruction. Did undergo right BKA approximately 3 weeks ago and was discharged on p.o. Bactrim and Flagyl; quick pill count such as the patient has not been taking medications as prescribed. BKA surgical incision is clean, dry, well approximated, without erythema, edema, or drainage; no signs to suggest acute infection. Blood in stool culture no growth so far. We will hold on antibiotics at this time pending the results of blood and stool culture.
[2019-10-30] MEDS: PANTOPRAZOLE SODIUM 40 MG TABLET.DR PO SCH (17:40)
[2019-10-31] MEDS: MORPHINE SULFATE 10 MG/ML INJ IV PRN ×3 (00:39→09:11)
[2019-10-31] MEDS: PANTOPRAZOLE SODIUM 40 MG TABLET.DR PO SCH (05:18)
[2019-10-31] MEDS: INSULIN LISPRO 100 UNIT/ML 3 ML VIAL SUBCUT SCH (07:44)
[2019-10-31] MEDS: INSULIN GLARGINE,HUM.REC.ANLOG 1,000 UNIT/10 ML VIAL SUBCUT SCH (09:06)
[2019-10-31] MEDS: MINERAL OIL/PETROLATUM,WHITE CREAM 114 GM TP SCH (09:09)
[2019-10-31] MEDS: DOCUSATE SODIUM 100 MG CAPSULE PO SCH (09:09)
[2019-10-31 10:13] LABS: ABSOLUTE EOSINOPHILS # (AUTO) 0.4 10^3/uL (0.0-0.6); ABSOLUTE MONOCYTES (AUTO) 0.5 10^3/uL (0.1-1.4); ABSOLUTE NEUT (AUTO) 4.8 10^3/uL (1.7-8.2); BASOPHILS % (AUTO) 0.2 % (0-2); EOSINOPHILS % (AUTO) 4.6 % (0-6); HEMATOCRIT 26.2 % (37.9-51.0); HEMOGLOBIN 9.2 g/dL (13.5-17.0); LYMPHOCYTES % (AUTO) 26.2 % (13-45); MEAN CORPUSCULAR HEMOGLOBIN 32.4 pg (27.0-33.4); MEAN CORPUSCULAR VOLUME 93 fl (80-97); MONOCYTES % (AUTO) 6.8 % (3-13); PLATELET COUNT 538 10^3/uL (150-450); RED BLOOD COUNT 2.83 10^6/uL (4.35-5.55); RED CELL DISTRIBUTION WIDTH 13.8 % (11.5-14.0); SEGMENTED NEUTROPHILS % (AUTO) 62.2 % (42-78); TOTAL CELLS COUNTED % (AUTO) 100 %; WHITE BLOOD COUNT 7.7 10^3/uL (4.0-10.5)
[2019-10-31 10:23] LABS: ANION GAP 8 (5-19); BLOOD UREA NITROGEN 14 mg/dL (7-20); CALCIUM 8.8 mg/dL (8.4-10.2); CARBON DIOXIDE 22 mmol/L (22-30); CHLORIDE 101 mmol/L (98-107); GLUCOSE 163 mg/dL (75-110); POTASSIUM 4.1 mmol/L (3.6-5.0)
[2019-10-31 11:00] VITALS: BP 113/78
--- NOTE | 2019-10-31 13:26 | PDOC DISCHARGE SUMMARY ---
Impression - Admit/DC Date/PCP Admission Date/Primary Care Provider: 10/29/19 13:26 Discharge Date: 10/31/19 - Discharge Diagnosis (1) Ileus Is this a current diagnosis for this admission?: Yes (2) Abdominal pain Is this a current diagnosis for this admission?: Yes (3) DM2 (diabetes mellitus, type 2) Is this a current diagnosis for this admission?: Yes (4) S/P BKA (below knee amputation) unilateral Is this a current diagnosis for this admission?: Yes (5) Leukocytosis Is this a current diagnosis for this admission?: Yes - Additional Information Resuscitation Status: Full Code Discharge Diet: As Tolerated Discharge Activity: Activity As Tolerated, Balance Activity w/Rest Referrals: [facility] [Provider Group] Home Medications: B Infantis/B Ani/B Gus/B Bifid [Probiotic 4X Caplet] 1 each PO DAILY 10/29/19 Gabapentin [Neurontin 300 mg Capsule] 600 mg PO Q8 10/29/19 Insulin Aspart [Novolog Flexpen] 5 unit SQ AC 10/29/19 Metformin HCl [Metformin HCl ER] 500 mg PO BID 10/29/19 Metronidazole [Flagyl 500 mg Tablet] 500 mg PO Q12 10/29/19 Mupirocin [Bactroban 2% Ointment 22 gm] 1 applic TP DAILY 10/29/19 Oxycodone HCl [Oxy-Ir 5 mg Tablet] 10 mg PO Q4HP PRN 10/29/19 Sulfamethoxazole/Trimethoprim [Septra-Ds 800-160 mg Tablet] 1 tab PO Q12 10/29/19 Insulin Detemir [Levemir Insulin 100 units/mL Insulin Pen] 15 units SQ QHS 30 Days #1 10/31/19 History of Present Illiness History of Present Illness: MATTEO JOSE is a 38 year old male with a past medical history of uncontrolled diabetes mellitus, osteomyelitis with recent right BKA, neuropathy who presented to the emergency department today with a complaint of generalized abdominal discomfort with nausea x2 days. He reports one episode of emesis yesterday. Evaluation in the emergency department revealed leukocytosis (D 17.5), anemia with a hemoglobin of coags, blood gas, and chemistry revealing mild hyponatremia slightly elevated AST and alk phosphatase, and hyperglycemia. CT of the abdomen with contrast demonstrated ileus versus partial small bowel obstruction to the left upper quadrant. Surgery has been consulted by the emergency department provider. Refer to the hospitalist service for admission and management of the above- stated complaints and findings. Hospital Course Hospital Course: (1) Ileus Resolved. Patient is passing flatus and having bowel movements. CT abdomen pelvis on admission revealed a left upper quadrant ileus versus partial small bowel obstruction. Surgery consulted. Has signed off as ileus has resolved. Diet advanced to regular. Tolerating. Having normal bowel and bladder movements. Patient was noted to be Hemoccult positive on admission, and was also anemic. Not sure if his anemia is related to his recent DKA and Hemoccult was positive due to ileus. Repeat Hemoccult was ordered however patient very anxious to leave and did not want to wait for the results on provider sample. This was discussed with the patient and he was asked to follow-up with his PCP for reevaluation of his anemia and Hemoccult-positive stool. Patient voiced understanding and stated stated that he has an appointment with his PCP on the of this month. (2) Abdominal pain Resolved Secondary to #1. Evaluation and management as above. (3) DM2 (diabetes mellitus, type 2) Noted to be hypoglycemic since hospitalization resolved after resumption of p.o. feeds. Presented with blood glucose level of 465 Received 2 L normal saline bolus followed by generous maintenance fluids Was continued diabetic diet, Accu-Cheks every 6 hours with Humalog for sliding scale coverage. Patient takes 40 units of Lantus at home. This was was decreased to 15 units nightly. He was advised on closely monitor his blood glucose level at home and coming back to ED or calling PCP if blood glucose levels are abnormally high or low. Patient voiced understanding and stated that he has all diabetic supplies at home. (4) S/P BKA (below knee amputation) unilateral Skin well approximated, wound looks clean, no tenderness, no discharge, no sign of active infection. Patient was advised to follow-up with his PCP and surgeon as outpatient. (5) Leukocytosis Resolved. Presented with WBCs 17.5. Cultures no growth x48 hours at the time of discharge. Unclear etiology; patient is afebrile, does report abdominal pain. CT reveals ileus versus small partial partial small bowel obstruction. Did undergo right BKA approximately 3 weeks ago and was discharged on p.o. Bactrim and Flagyl; quick pill count such as the patient has not been taking medications as prescribed. BKA surgical incision is clean, dry, well approximated, without erythema, edema, or drainage; no signs to suggest acute infection. Physical Exam Vital Signs: Temp Pulse Resp BP Pulse Ox 97.9 F 87 16 113/78 99 10/31/19 10:57 10/31/19 10:57 10/31/19 10:57 10/31/19 10:57 10/31/19 10:57 Intake & Output 10/30/19 10/31/19 11/01/19 06:59 06:59 06:59 Intake Total 2310 975 Output Total 350 300 Balance 1960 675 Weight 56.8 kg 54.9 kg General appearance: PRESENT: no acute distress, thin, well-nourished Head exam: PRESENT: atraumatic, normocephalic Respiratory exam: PRESENT: clear to auscultation hortensia. ABSENT: rales, rhonchi, wheezes Cardiovascular exam: PRESENT: RRR. ABSENT: diastolic murmur, rubs, systolic murmur Neurological exam: PRESENT: alert, awake, oriented to person, oriented to place, oriented to time, oriented to situation, CN II-XII grossly intact. ABSENT: mot or sensory deficit Results Laboratory Results: WBC 7.7 10^3/uL (4.0-10.5) 10/31/19 09:43 RBC 2.83 10^6/uL (4.35-5.55) L 10/31/19 09:43 Hgb 9.2 g/dL (13.5-17.0) L 10/31/19 09:43 Hct 26.2 % (37.9-51.0) L 10/31/19 09:43 MCV 93 fl (80-97) 10/31/19 09:43 MCH 32.4 pg (27.0-33.4) 10/31/19 09:43 MCHC 35.0 g/dL (32.0-36.0) 10/31/19 09:43 RDW 13.8 % (11.5-14.0) 10/31/19 09:43 Plt Count 538 10^3/uL (150-450) H 10/31/19 09:43 Lymph % (Auto) 26.2 % (13-45) 10/31/19 09:43 [place] % (Auto) 6.8 % (3-13) 10/31/19 09:43 Eos % (Auto) 4.6 % (0-6) 10/31/19 09:43 Baso % (Auto) 0.2 % (0-2) 10/31/19 09:43 Absolute Neuts (auto) 4.8 10^3/uL (1.7-8.2) 10/31/19 09:43 Absolute Lymphs (auto) 2.0 10^3/uL (0.5-4.7) 10/31/19 09:43 Absolute Monos (auto) 0.5 10^3/uL (0.1-1.4) 10/31/19 09:43 Absolute Eos (auto) 0.4 10^3/uL (0.0-0.6) 10/31/19 09:43 Absolute Basos (auto) 0.0 10^3/uL (0.0-0.2) 10/31/19 09:43 Seg Neutrophils % 62.2 % (42-78) 10/31/19 09:43 PT 13.7 SEC (11.4-15.4) 10/29/19 04:15 INR 1.05 10/29/19 04:15 APTT 32.3 SEC (23.5-35.8) 10/29/19 04:15 VBG pH 7.32 (7.30-7.42) 10/29/19 04:15 VBG pCO2 51.2 mmHg (35-63) 10/29/19 04:15 VBG HCO3 25.6 mmol/L (20-32) 10/29/19 04:15 VBG Base Excess -1.2 mmol/L 10/29/19 04:15 Sodium 130.7 mmol/L (137-145) L 10/31/19 09:43 Potassium 4.1 mmol/L (3.6-5.0) 10/31/19 09:43 Chloride 101 mmol/L (98-107) 10/31/19 09:43 Carbon Dioxide 22 mmol/L (22-30) 10/31/19 09:43 Anion Gap 8 (5-19) 10/31/19 09:43 BUN 14 mg/dL (7-20) 10/31/19 09:43 Creatinine 0.48 mg/dL (0.52-1.25) L 10/31/19 09:43 Est GFR ( Amer) > 60 (>60) 10/31/19 09:43 Est GFR (MDRD) Non-Af > 60 (>60) 10/31/19 09:43 Glucose 163 mg/dL (75-110) H 10/31/19 09:43 POC Glucose 149 mg/dL (70-110) H 10/31/19 06:13 Lactic Acid 0.7 mmol/L (0.7-2.1) 10/29/19 10:53 Calcium 8.8 mg/dL (8.4-10.2) 10/31/19 09:43 Total Bilirubin 0.5 mg/dL (0.2-1.3) 10/29/19 04:15 Direct Bilirubin 0.3 mg/dL (0.0-0.4) 10/29/19 04:15 Neonat Total Bilirubin Not Reportable 10/29/19 04:15 Neonat Direct Bilirubin Not Reportable 10/29/19 04:15 Neonat Indirect Bili Not Reportable 10/29/19 04:15 AST 65 U/L (17-59) H 10/29/19 04:15 ALT 46 U/L (<50) 10/29/19 04:15 Alkaline Phosphatase 199 U/L (38-126) H 10/29/19 04:15 Creatine Kinase 68 U/L (55-170) 10/29/19 04:15 Total Protein 8.3 g/dL (6.3-8.2) H 10/29/19 04:15 Albumin 3.5 g/dL (3.5-5.0) 10/29/19 04:15 Lipase 54.7 U/L (23-300) 10/29/19 04:15 Urine Color YELLOW 10/29/19 08:00 Urine Appearance SLIGHTLY-CLOUDY 10/29/19 08:00 Urine pH 6.0 (5.0-9.0) 10/29/19 08:00 Ur Specific [place] 1.054 10/29/19 08:00 Urine Protein 30 mg/dL (NEGATIVE) H 10/29/19 08:00 Urine Glucose (UA) >=500 mg/dL (NEGATIVE) H 10/29/19 08:00 Urine Ketones NEGATIVE mg/dL (NEGATIVE) 10/29/19 08:00 Urine Blood NEGATIVE (NEGATIVE) 10/29/19 08:00 Urine Nitrite NEGATIVE (NEGATIVE) 10/29/19 08:00 Urine Bilirubin NEGATIVE (NEGATIVE) 10/29/19 08:00 Urine Urobilinogen NEGATIVE mg/dL (<2.0) 10/29/19 08:00 Ur Leukocyte Esterase TRACE (NEGATIVE) H 10/29/19 08:00 Urine WBC (Auto) 10 /HPF 10/29/19 08:00 Urine RBC (Auto) 59 /HPF 10/29/19 08:00 U Hyaline Cast (Auto) 61 /LPF 10/29/19 08:00 Squamous Epi Cells Auto 17 /HPF 10/29/19 08:00 Urine Mucus (Auto) RARE /LPF 10/29/19 08:00 Urine Ascorbic Acid NEGATIVE (NEGATIVE) 10/29/19 08:00 POC Stool Occult Blood POSITIVE (NEGATIVE) 10/29/19 05:40 Stl C. Difficile GDH Ag NEGATIVE (NEGATIVE) 10/29/19 05:20 Stl C.difficile Tox A&B NEGATIVE (NEGATIVE) 10/29/19 05:20 Urine Opiates Screen NEGATIVE 10/29/19 08:00 Urine Methadone Screen NEGATIVE 10/29/19 08:00 Ur Barbiturates Screen NEGATIVE 10/29/19 08:00 Ur Phencyclidine Scrn NEGATIVE 10/29/19 08:00 Ur Amphetamines Screen NEGATIVE 10/29/19 08:00 U Benzodiazepines Scrn NEGATIVE 10/29/19 08:00 Urine Cocaine Screen NEGATIVE 10/29/19 08:00 U Marijuana (THC) Screen UNCONFIRMED POSITIVE 10/29/19 08:00 Blood Type O POSITIVE 10/29/19 07:54 Antibody Screen NEGATIVE 10/29/19 07:54 Impressions: Chest X-Ray 10/29/19 05:11 IMPRESSION: Negative chest copyright 2011 [email or web address]- All Rights Reserved Abdomen/Pelvis CT 10/29/19 06:06 IMPRESSION: 1. Faint groundglass opacities in the right lower lobe which may be related to a localized inflammatory process. 2. The stomach and duodenum are moderately distended with fluid. A proximal bowel obstruction is not excluded. 3. Poor differentiation of the subcutaneous fat planes which may be due to underlying edema. 4. Paucity of intra-abdominal fat resulting in slight degradation of image quality. 5. The gallbladder is difficult to delineate from adjacent bowel loops. Abdomen/Pelvis CT 10/29/19 07:45 IMPRESSION: Ileus or partial small bowel obstruction left upper quadrant. No high-grade obstruction. Stroke Is this a Stroke Patient?: No Acute Heart Failure - Is this a Heart Failure Patient?: No
[2019-11-01] MEDS ORDERED: INSULIN GLARGINE,HUM.REC.ANLOG 1,000 UNIT/10 ML VIAL SUBCUT SCH (10:00)
== END 2019-10-31 11:24 | disposition home or self-care (01) | DRG 389 ==
LOC: ER 04:03 → INTOOBSV 07:57 → EH 07:57 → OBSVTOIN 13:26 → 4W 15:27
PROVIDERS: ADMIT Hospitalist; ATTEND Hospitalist
DX: K56.7 Ileus, unspecified (principal); E87.1 Hypo-osmolality and hyponatremia; M86.9 Osteomyelitis, unspecified; D64.9 Anemia, unspecified; K56.600 Partial intestinal obstruction, unspecified as to cause; E86.0 Dehydration; E11.65 Type 2 diabetes mellitus with hyperglycemia; I95.9 Hypotension, unspecified; E11.40 Type 2 diabetes mellitus with diabetic neuropathy, unspecified; D72.829 Elevated white blood cell count, unspecified; R19.7 Diarrhea, unspecified; R11.2 Nausea with vomiting, unspecified; Z89.511 Acquired absence of right leg below knee; Z79.84 Long term (current) use of oral hypoglycemic drugs; Z79.4 Long term (current) use of insulin; Z79.899 Other long term (current) drug therapy
CPT/HCPCS: 36415; 71045; 74176; 74177; 80048; 80053; 80307; 81001; 82550; 82803; 82962; 83605; 83690; 85025; 85027; 85610; 85730; 86850; 86900; 86901; 87040; 87045; 87205; 87324; 87449; 93005; 93010; 96361; 96365; 96375; 96376; 99285; C9113; J1815; J2270; J2405; J3010; J3490; J7030; J7050; J7120

== ENCOUNTER 2019-12-06 12:14 | Emergency (ER) | payer MEDICAID ==
[2019-12-06 12:22] VITALS: BP 101/56
--- NOTE | 2019-12-06 12:22 | ER Document Report ---
ED Medical Screen (RME) - General Chief Complaint: Leg Pain Stated Complaint: LEFT LEG PAIN Time Seen by Provider: 12/06/19 12:17 Mode of Arrival: Wheelchair Information source: Patient Notes: 38-year-old male presented to ED for complaint of pain to his right wrist right foot left stump he is diabetic. He states he is also short of breath. He states he has not taken his blood sugar and about a week. He states his grandmother at that time and he is lost his blood sugar machine. Pulse is 108 in the pit area pulse 101/56 temp 97.8 O2 sat 99%. We will get blood work x-rays and have him seen by another provider. I have greeted and performed a rapid initial assessment of this patient. A comprehensive ED assessment and evaluation of the patient, analysis of test results and completion of medical decision making process will be conducted by an additional ED providers. TRAVEL OUTSIDE OF THE [place] IN LAST 30 DAYS: No - Related Data Allergies/Adverse Reactions: No Known Allergies Allergy (Unverified 08/05/16 21:37) Past Medical History Endocrine Medical History: Reports: Hx Diabetes Mellitus Type 2 - Insulin- dependent, with neuropathy. Denies: Hx Hypothyroidism Past Surgical History: Reports: Hx Orthopedic Surgery - Right BKA - Immunizations Hx Diphtheria, Pertussis, Tetanus Vaccination: Yes
[2019-12-06 12:54] LABS: ABSOLUTE BASOPHILS # (AUTO) 0.1 10^3/uL (0.0-0.2); ABSOLUTE EOSINOPHILS # (AUTO) 0.1 10^3/uL (0.0-0.6); ABSOLUTE LYMPHOCYTES (AUTO) 2.6 10^3/uL (0.5-4.7); ABSOLUTE MONOCYTES (AUTO) 0.8 10^3/uL (0.1-1.4); ABSOLUTE NEUT (AUTO) 10.5 10^3/uL (1.7-8.2); BASOPHILS % (AUTO) 0.8 % (0-2); EOSINOPHILS % (AUTO) 0.8 % (0-6); HEMATOCRIT 38.8 % (37.9-51.0); HEMOGLOBIN 13.2 g/dL (13.5-17.0); LYMPHOCYTES % (AUTO) 18.4 % (13-45); MEAN CORPUSCULAR HEMOGLOBIN 31.8 pg (27.0-33.4); MEAN CORPUSCULAR HGB CONC 33.9 g/dL (32.0-36.0); MEAN CORPUSCULAR VOLUME 94 fl (80-97); MONOCYTES % (AUTO) 5.7 % (3-13); PLATELET COUNT 408 10^3/uL (150-450); RED BLOOD COUNT 4.13 10^6/uL (4.35-5.55); RED CELL DISTRIBUTION WIDTH 14.3 % (11.5-14.0); SEGMENTED NEUTROPHILS % (AUTO) 74.3 % (42-78); TOTAL CELLS COUNTED % (AUTO) 100 %; WHITE BLOOD COUNT 14.1 10^3/uL (4.0-10.5)
[2019-12-06 13:11] LABS: ALBUMIN 3.8 g/dL (3.5-5.0); ALKALINE PHOSPHATASE 168 U/L (38-126); ANION GAP 11 (5-19); ASPARTATE AMINO TRANSFERASE 29 U/L (17-59); BILIRUBIN,TOTAL 0.5 mg/dL (0.2-1.3); BLOOD UREA NITROGEN 15 mg/dL (7-20); CALCIUM 9.4 mg/dL (8.4-10.2); CARBON DIOXIDE 20 mmol/L (22-30); CHLORIDE 103 mmol/L (98-107); GLUCOSE 111 mg/dL (75-110); POTASSIUM 3.4 mmol/L (3.6-5.0); TOTAL PROTEIN 8.1 g/dL (6.3-8.2)
[2019-12-06] MEDS ORDERED: POTASSIUM CHLORIDE 10 MEQ TABLET.ER PO ONE (13:47)
--- NOTE | 2019-12-06 13:47 | RADIOLOGY REPORT (SQ) ---
EXAM DESCRIPTION: TIBIA FIBULA LEFT; CHEST 2 VIEWS; FOOT RIGHT COMPLETE; SHOULDER LEFT 2 OR MORE VIE WS; WRIST RIGHT 3 VIEWS COMPLETED DATE/TIME: 12/06/2019 1:31 pm REASON FOR STUDY: Diabetic pain left stump; Short of breath; Diabetic pain COMPARISON: See below. FINDINGS: Two view chest: 10/29/2019 comparison. Hyperinflated but clear lungs. No pneumothorax or opacity. Intact bones. Normal cardiomediastinal silhouette. Three views left shoulder: Normal. Three views right wrist: Soft tissue swelling particularly dorsally. Possible dorsal soft tissue ab rasion or laceration. No radiopaque foreign body or fracture. No carpal malalignment. Two views left tibia and fibula: Below the knee amputation with sharp margins. Osteopenic. No acut e fracture or significant effusion detected. Three views right foot: Osteopenic. No acute fracture. Chronic appearing arthropathy at the pinky metatarsophalangeal joint. There is flattening and loss of bone in the metatarsal head with mild per iosteal new bone reaction along the distal metatarsal shaft. Correlate with history of injury or art hropathy or infection here. Remainder of the foot looks intact. TECHNICAL DOCUMENTATION: JOB ID: [id number] Reading location - IP/workstation name: [email or web address]
--- NOTE | 2019-12-06 13:47 | RADIOLOGY REPORT (SQ) ---
EXAM DESCRIPTION: TIBIA FIBULA LEFT; CHEST 2 VIEWS; FOOT RIGHT COMPLETE; SHOULDER LEFT 2 OR MORE VIE WS; WRIST RIGHT 3 VIEWS COMPLETED DATE/TIME: 12/06/2019 1:31 pm REASON FOR STUDY: Diabetic pain left stump; Short of breath; Diabetic pain COMPARISON: See below. FINDINGS: Two view chest: 10/29/2019 comparison. Hyperinflated but clear lungs. No pneumothorax or opacity. Intact bones. Normal cardiomediastinal silhouette. Three views left shoulder: Normal. Three views right wrist: Soft tissue swelling particularly dorsally. Possible dorsal soft tissue ab rasion or laceration. No radiopaque foreign body or fracture. No carpal malalignment. Two views left tibia and fibula: Below the knee amputation with sharp margins. Osteopenic. No acut e fracture or significant effusion detected. Three views right foot: Osteopenic. No acute fracture. Chronic appearing arthropathy at the pinky metatarsophalangeal joint. There is flattening and loss of bone in the metatarsal head with mild per iosteal new bone reaction along the distal metatarsal shaft. Correlate with history of injury or art hropathy or infection here. Remainder of the foot looks intact. TECHNICAL DOCUMENTATION: JOB ID: [id number] Reading location - IP/workstation name: [email or web address]
--- NOTE | 2019-12-06 13:58 | ER Document Report ---
ED General - General Chief Complaint: Leg Pain Stated Complaint: LEFT LEG PAIN Time Seen by Provider: 12/06/19 12:17 Mode of Arrival: Wheelchair Notes: Patient is a 38-year-old -[place] male with a past medical history significant for type 2 diabetes who presents to the emergency department with a chief complaint of multiple aches and pains that have been ongoing for about a month. Patient complains of pain in the left shoulder, right wrist, right foot, stump of the left lower extremity and some mild shortness of breath. 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 He admits to chronic wounds one on the dorsal right wrist and one on the plantar surface just proximal to the right MTP of the pinky toe. He denies any weepage or drainage from the sites. States the pains are just chronic and unchanged. He denies any injuries, fall or trauma. He denies any fever chills or night sweats. States he still taking his diabetic medications and gabapentin. TRAVEL OUTSIDE OF THE [place] IN LAST 30 DAYS: No - Related Data Allergies/Adverse Reactions: No Known Allergies Allergy (Unverified 08/05/16 21:37) Past Medical History - General Information source: Patient - Social History Smoking Status: Current Every Day Smoker Frequency of alcohol use: Former alcohol abuse Drug Abuse: Marijuana Family History: Reviewed & Not Pertinent Patient has suicidal ideation: No Patient has homicidal ideation: No Endocrine Medical History: Reports: Hx Diabetes Mellitus Type 2 - Insulin- dependent, with neuropathy. Denies: Hx Hypothyroidism Past Surgical History: Reports: Hx Orthopedic Surgery - Right BKA - Immunizations Hx Diphtheria, Pertussis, Tetanus Vaccination: Yes Review of Systems - Review of Systems Constitutional: No symptoms reported Cardiovascular: No symptoms reported Respiratory: Short of breath. denies: Cough Gastrointestinal: No symptoms reported Musculoskeletal: Joint pain, Muscle pain Skin: Lesions Neurological/Psychological: No symptoms reported -: Yes All other systems reviewed and negative Physical Exam - Vital signs Vitals: Temp Pulse Resp BP Pulse Ox 97.8 F 108 H 16 101/56 L 99 12/06/19 12:21 12/06/19 12:21 12/06/19 12:21 12/06/19 12:21 12/06/19 12:21 - General General appearance: Alert, Other - Emaciated In distress: None - HEENT Head: Normocephalic, Atraumatic Eyes: Normal Conjunctiva: Normal Pupils: PERRL Mucous membranes: Moist Neck: Other - Tenderness to left trapezius with palpable muscle spasm - Respiratory Respiratory status: No respiratory distress Chest status: Nontender Breath sounds: Normal Chest palpation: Normal - Cardiovascular Rhythm: Regular Heart sounds: Normal auscultation - Back Back: Normal, Nontender - Extremities Notes: Full passive range of motion of all the extremities. Nontender left shoulder. Neurovascularly intact in bilateral upper and right lower with 2+ pulses. Mid tibial stump, below the knee amputation to the left lower extremity with some tenderness to palpation about the area. Mild tenderness to palpation of the right fifth toe proximally. - Neurological Neuro grossly intact: Yes Cognition: Normal Orientation: AAOx4 Norbert Coma Scale Eye Opening: Spontaneous Norbert Coma Scale Verbal: Oriented Norbert Coma Scale Motor: Obeys Commands Norbert Coma Scale Total: 15 Speech: Normal Motor strength normal: LUE, RUE, LLE, RLE Sensory: Normal - Psychological Associated symptoms: Normal affect, Normal mood - Skin Skin Temperature: Warm Skin Moisture: Dry Skin Color: Other - Dry cracking skin diffusely. Patient has a chronic wound to the dorsal right wrist, no purulence or surrounding erythema or swelling. Appears to be healing well. There is a small ulceration beneath the right fifth MTP plantar surface that is mildly tender to palpation but without drainage, erythema or significant swelling. No redness or swelling of the left lower extremity stump. Course - Re-evaluation Re-evalutation: 12/06/19 14:58 Patient's family member at bedside, starting to wheel the patient out to exit the emergency department. They were stopped by nurses and I was alerted that the patient did not wish to continue his work-up. I discussed with the patient prior to leaving the risks of this decision including but not limited to sudden or permanent neurological disability. The patient verbalized that he understood but stated that he had sat here long enough and did not wish to wait for any further testing. He states he has antibiotics at home and that he can buy something [id number] for his aches and pains and that he wishes to go at this time. He is aware of the risks as discussed. He is of sound mind and mental capacity to make informed decision. His family member also try to talk him into staying but he declined. He is aware that he is free to return here at any time to continue his care. He has a follow-up appointment next week with his primary doctor. He will follow-up as scheduled, advised to return here or any ER immediately with any new, persistent or worsening symptoms. He verbalized understood and agreed. Patient signed AMA form. - Vital Signs Vital signs: Temp Pulse Resp BP Pulse Ox 97.8 F 108 H 16 101/56 L 99 12/06/19 12:21 12/06/19 12:21 12/06/19 12:21 12/06/19 12:21 12/06/19 12:21 - Laboratory Result Diagrams: 12/06/19 12:43 12/06/19 12:43 Laboratory results interpreted by me: 12/06/19 12/06/19 12/06/19 12:43 12:43 12:43 WBC 14.1 H RBC 4.13 L Hgb 13.2 L RDW 14.3 H Absolute Neuts (auto) 10.5 H Sodium 133.6 L Potassium 3.4 L Carbon Dioxide 20 L Glucose 111 H Alkaline Phosphatase 168 H Creatine Kinase 40 L Discharge - Discharge Clinical Impression: Pain of multiple sites, diabetic wounds Condition: Stable Disposition: AGAINST MEDICAL ADVICE
[2019-12-06 14:19] LABS: PHOSPHORUS 4.5 mg/dL (2.5-4.5)
== END 2019-12-06 15:10 | disposition left against medical advice (07) ==
LOC: ER 12:14
DX: M79.605 Pain in left leg (principal); M25.512 Pain in left shoulder; M25.531 Pain in right wrist; M79.671 Pain in right foot; R06.02 Shortness of breath; M79.10 Myalgia, unspecified site; M25.50 Pain in unspecified joint; Z89.512 Acquired absence of left leg below knee; F17.200 Nicotine dependence, unspecified, uncomplicated; E11.9 Type 2 diabetes mellitus without complications; Z79.4 Long term (current) use of insulin
CPT/HCPCS: 36415; 71046; 80053; 82550; 83735; 84100; 85025; 99283